=== PATIENT | male | born 1965 | race Caucasian/White ===

== ENCOUNTER 2017-04-14 20:22 | Emergency (ER) | payer OTHER ==
[~2017-04-14] VITALS: Ht 167.6 cm; Wt 106.6 kg
[~2017-04-14 20:22] MED LIST: METO25TA3 PO; SIMV20TA6 PO
--- NOTE | 2017-04-14 20:30 | NUR ---
PT TAKEN TO OF
[2017-04-14 20:38] VITALS: BP 153/90
--- NOTE | 2017-04-14 20:38 | NUR ---
Dr. Villegas evaluating patient
[2017-04-14 20:58] VITALS: BP 155/88
--- NOTE | 2017-04-14 20:59 | NUR ---
Patient discharged with v/s stable. Written and verbal after care instructions given and explained. Patient alert, oriented and verbalized understanding of instructions. Ambulatory with steady gait. All questions addressed prior to discharge. ID band removed. Patient advised to follow up with PMD. Rx of OFLOXACIN AND AUGMENTIN given. Patient educated on indication of medication including possible reaction and side effects. Opportunity to ask questions provided and answered.
== END 2017-04-14 20:59 | disposition home or self-care (01) ==
LOC: MED 20:22
DX: S00.411A Abrasion of right ear, initial encounter (principal); I10 Essential (primary) hypertension; X58.XXXA Exposure to other specified factors, initial encounter; Y93.89 Activity, other specified; Y92.89 Other specified places as the place of occurrence of the external cause; Y99.8 Other external cause status
CPT/HCPCS: 99283